=== PATIENT | male | born 1980 | race Caucasian/White ===

== ENCOUNTER 2016-04-28 18:25 | Outpatient (CLI) ==
[2016-04-28 15:25] VITALS: BMI 27.3
[2016-04-28 18:43] LABS: FLU INTERNAL QC INTERNAL QC VALID; RAPID FLU A NEGATIVE (NEGATIVE); RAPID FLU B NEGATIVE (NEGATIVE)
== END 2016-04-28 18:26 | disposition home or self-care (01) ==
LOC: NONPT 18:25
PROVIDERS: ATTEND Nurse Practitioner Family
DX: J02.9 Acute pharyngitis, unspecified (principal); R05 Cough
CPT/HCPCS: 87651; 87804; 87880